=== PATIENT | female | born 1955 | race Caucasian/White ===

== ENCOUNTER 2017-07-19 19:50 | Observation (INO) | payer BC ==
[~2017-07-19] VITALS: Ht 167.6 cm; Wt 72.7 kg
[~2017-07-19 19:50] MED LIST: CLIN1CAP6 PO; LACT PO; LORT5TAB PO; MUPI2%T TOP; PROZ20CA11 PO; SULF1TAB47 PO; [UNRECOGNIZED DRUG - OTHER]
[2017-07-19 20:00] VITALS: BP 148/79; TEMP 98.1; O2SAT 99
[2017-07-19] MEDS ORDERED: ONDANSETRON HCL 4 MG/2 ML VIAL ONE (20:01)
--- NOTE | 2017-07-19 20:05 | PD ---
HPI Chief Complaint: Dizziness Time Seen by Provider: 20:01 Travel History International Travel<30 days: No Contact w/Intl Traveler<30days: No Traveled to known affect area: No History of Present Illness HPI The patient is a 61-year-old female that complains of vertigo beginning suddenly this afternoon. It briefly resolved but then came back. Anytime she moves her head there is vertigo, the room spins and causes her to get nauseated and vomit. She denies any fever or abdominal pain. She does have a slight, gradual headache which is bifrontal. She denies any tinnitus or ear pain. She denies any focal neurologic change, focal weakness or sensory loss. PFSH Past Medical History Autoimmune Disease: Yes (PSORIASIS) Cancer: Yes (SKIN CA) Cardiovascular Problems: No Chemotherapy: No Diabetes: No Endocrine: No Genitourinary: No Immune Disorder: Yes Musculoskeletal: No Neurologic: No Psychiatric: No Reproductive: No Respiratory: No Radiation Therapy: No Thyroid Disease: No Menopausal: Yes Past Surgical History Tonsillectomy: Yes (1972) Social History Alcohol Use: No Tobacco Use: No Substance Use: No Allergies-Medications (Allergen,Severity, Reaction): Coded Allergies: cephalexin (Verified Allergy, Intermediate, 07/19/17) morphine (Verified Adverse Reaction, Intermediate, ITCHING, 07/19/17) Reported Meds & Prescriptions Reported Meds & Active Scripts Active Reported [Imbral] Review of Systems Except as stated in HPI: all other systems reviewed are Neg Physical Exam Narrative GENERAL: The vital signs are normal. The patient holds her head perfectly still , turned to the right and moderate to severe distress with her vertigo. SKIN: Focused skin assessment warm/dry. HEAD: Atraumatic. Normocephalic. EYES: Pupils equal and round. No scleral icterus. No injection or drainage. ENT: No nasal bleeding or discharge. Mucous membranes pink and moist. The tympanic membranes are clear. NECK: Trachea midline. No JVD. There is no meningismus present. CARDIOVASCULAR: Regular rate and rhythm. No murmur appreciated. RESPIRATORY: No accessory muscle use. Clear to auscultation. Breath sounds equal bilaterally. GASTROINTESTINAL: Abdomen soft, non-tender, nondistended. Hepatic and splenic margins not palpable. MUSCULOSKELETAL: No obvious deformities. No clubbing. No cyanosis. No edema. NEUROLOGICAL: Awake and alert. No obvious cranial nerve deficits. Motor grossly within normal limits. Normal speech. PSYCHIATRIC: Appropriate mood and affect; insight and judgment normal. Data Data Last Documented VS Vital Signs Date Time Temp Pulse Resp B/P (MAP) Pulse Ox O2 Delivery O2 Flow Rate FiO2 07/19/17 20:35 63 20 96 Nasal Cannula 2.00 07/19/17 20:00 98.1 148/79 (102) Orders Orders Ondansetron Inj (Zofran Inj) (07/19/17 20:01) Ondansetron Inj (Zofran Inj) (07/19/17 20:15) Sodium Chlor 0.9% 1000 Ml Inj (Ns 1000 M (07/19/17 20:15) Electrocardiogram (07/19/17 20:07) Complete Blood Count With Diff (07/19/17 20:07) Comprehensive Metabolic Panel (07/19/17 20:07) Magnesium (Mg) (07/19/17 20:07) Urinalysis - C+S If Indicated (07/19/17 20:07) Ct Brain W/O Iv Contrast(Rout) (07/19/17 20:07) Ecg Monitoring (07/19/17 20:07) Iv Access Insert/Monitor (07/19/17 20:07) Oximetry (07/19/17 20:07) Sodium Chloride 0.9% Flush (Ns Flush) (07/19/17 20:15) Meclizine (Antivert) (07/19/17 22:00) Place In Observation (07/19/17 ) Vital Signs (Adult) Q4H (07/19/17 20:37) Activity Oob With Assistance (07/19/17 20:37) Diet Heart Healthy (07/20/17 Breakfast) Sodium Chloride 0.9% Flush (Ns Flush) (07/19/17 20:45) Sodium Chloride 0.9% Flush (Ns Flush) (07/19/17 21:00) Acetaminophen (Tylenol) (07/19/17 20:45) Ondansetron Inj (Zofran Inj) (07/19/17 20:45) Basic Metabolic Panel (Bmp) (07/20/17 06:00) Complete Blood Count With Diff (07/20/17 06:00) Pt Request For Service (07/19/17 20:37) Heparin Inj (Heparin Inj) (07/19/17 20:45) Naloxone Inj (Narcan Inj) (07/19/17 20:45) Docusate Sodium-Senna (Milli-Colace) (07/19/17 21:00) Magnesium Hydroxide Liq (Milk Of Magnesi (07/19/17 20:45) Sennosides (Senokot) (07/19/17 20:45) Bisacodyl Supp (Dulcolax Supp) (07/19/17 20:45) Lactulose Liq (Lactulose Liq) (07/19/17 20:45) Ketorolac Inj (Toradol Inj) (07/19/17 20:45) Prochlorperazine Inj (Compazine Inj) (07/19/17 21:00) Labs Laboratory Tests Test 07/19/17 20:46 MDM Medical Decision Making Medical Screen Exam Complete: Yes Emergency Medical Condition: Yes Medical Record Reviewed: Yes Interpretation(s) CT brain is normal. The CBC shows a white count of 11,200 but is otherwise unremarkable. The basic metabolic profile shows a calcium of 8.6 but is otherwise unremarkable. The magnesium level is normal. Differential Diagnosis Brain tumor, electrolyte disorder, hypo-/hyperglycemia, intracranial hemorrhage , labyrinthitis, benign positional vertigo, intractable vertigo Narrative Course The patient has intractable vertigo. It is now 8:43 PM and the patient still has nausea and still does not want to move her head. She has been given maximum dose of Zofran as well as Compazine IV. Physician Communication Physician Communication I discussed the patient with Dr. De La Vega. Diagnosis Primary Impression: Vertigo Admitting Information Admitting Physician Requests: Observation Jean-Paul Chatterjee MD July 19, 2017 20:05
[2017-07-19] MEDS ORDERED: ONDANSETRON HCL 4 MG/2 ML VIAL IV ONE (20:15)
[2017-07-19] MEDS ORDERED: SODIUM CHLORIDE 0.9% FLUSH 10 ML FLUSH IVF PRN (20:15)
[2017-07-19 20:22] VITALS: RESP 20; O2SAT 96
--- NOTE | 2017-07-19 20:36 | RADRPT ---
EXAM DATE: 07/19/2017 8:28 PM EDT AGE/SEX: 61 years / Female INDICATIONS: Dizziness. CLINICAL DATA: This is the patient's initial encounter. Patient reports that signs and symptoms have been present for 1 day and indicates a pain score of 0/10. MEDICAL/SURGICAL HISTORY: . Tonsillectomy. RADIATION DOSE: 49.85 CTDI (mGy) COMPARISON: No prior [facility] exams available for comparison. TECHNIQUE: CT of the head without contrast. Using automated exposure control and adjustment of the mA and/or kV according to patient size, radiation dose was kept as low as reasonably achievable to ob tain optimal diagnostic quality images. FINDINGS: Cerebrum: The ventricles are normal. No midline shift, mass lesion, hemorrhage or acute infarction. No extraaxial fluid collections are seen. Posterior Fossa: The cerebellum and brainstem demonstrate no acute abnormality. The 4th ventricle is midline. The cerebellopontine angle is within normal limits. Extracranial: The visualized sinuses are clear. Skull: The calvaria is intact. No skull fracture. CONCLUSION: No acute intracranial abnormality is identified. Electronically signed by: Abdoulaye Butler MD 07/19/2017 8:34 PM EDT
[2017-07-19] MEDS ORDERED: ONDANSETRON HCL 4 MG/2 ML VIAL IVP PRN (20:45)
[2017-07-19] MEDS ORDERED: SODIUM CHLORIDE 0.9% FLUSH 10 ML FLUSH IV FLUSH PRN (20:45)
[2017-07-19] MEDS ORDERED: NALOXONE HCL 0.4 MG/ML AMP IV PUSH PRN (20:45)
[2017-07-19] MEDS ORDERED: ACETAMINOPHEN 325 MG TAB PO PRN (20:45)
[2017-07-19] MEDS ORDERED: LACTULOSE SYRUP 20 GM/30 ML CUP PO PRN (20:45)
[2017-07-19] MEDS ORDERED: SENNOSIDES 8.6 MG TAB PO PRN (20:45)
[2017-07-19] MEDS ORDERED: MAGNESIUM HYDROXIDE SUSP 30 ML CUP PO PRN (20:45)
[2017-07-19] MEDS ORDERED: BISACODYL 10 MG SUPP RECTAL PRN (20:45)
[2017-07-19] MEDS ORDERED: KETOROLAC TROMETHAMINE 60 MG/2 ML (IM) VIAL IVP ONE (20:45)
[2017-07-19] MEDS: SODIUM CHLOR 0.9% 1000 ML INJ 1,000 ML IV SCH (20:46)
[2017-07-19 20:50] LABS: AUTOMATED NEUTROPHIL # 4.2 TH/MM3 (1.8-7.7); BASOPHIL # 0.1 TH/MM3 (0-0.2); BASOPHIL % 1.1 % (0.0-2.0); EOSINOPHIL # 0.1 TH/MM3 (0-0.4); EOSINOPHIL % 1.8 % (0.0-4.0); HEMATOCRIT 41.5 % (35.0-46.0); LYMPH % 26.8 % (9.0-44.0); LYMPHOCYTE # 1.8 TH/MM3 (1.0-4.8); MEAN CELL VOLUME 87.6 FL (80.0-100.0); MEAN CORPUSCULAR HEMOGLOBIN 29.5 PG (27.0-34.0); MEAN CORPUSCULAR HGB CONC 33.7 % (32.0-36.0); MEAN PLATELET VOLUME 8.2 FL (7.0-11.0); MONO % 8.2 % (0.0-8.0); MONOCYTE # 0.5 TH/MM3 (0-0.9); NEUT % 62.1 % (16.0-70.0); PLATELET COUNT 331 TH/MM3 (150-450); RED BLOOD COUNT 4.74 MIL/MM3 (4.00-5.30); RED CELL DISTRIBUTION WIDTH 12.2 % (11.6-17.2); WHITE BLOOD COUNT 6.7 TH/MM3 (4.0-11.0)
[2017-07-19 20:56] LABS: CHLORIDE 107 MEQ/L (98-107); SODIUM (NA) 141 MEQ/L (136-145)
[2017-07-19 20:59] LABS: CALCIUM 8.6 MG/DL (8.5-10.1)
[2017-07-19 21:00] LABS: ALBUMIN 3.7 GM/DL (3.4-5.0); BICARBONATE 26.1 MEQ/L (21.0-32.0); BLOOD UREA NITROGEN 21 MG/DL (7-18); GLUCOSE,RANDOM 127 MG/DL (74-106); MAGNESIUM 2.1 MG/DL (1.5-2.5)
[2017-07-19] MEDS: DOCUSATE SODIUM 50 MG/SENNA 8.6 MG TAB PO SCH (21:00)
[2017-07-19] MEDS: SODIUM CHLORIDE 0.9% FLUSH 10 ML FLUSH IV FLUSH SCH (21:00)
[2017-07-19] MEDS ORDERED: PROCHLORPERAZINE INJ 10 MG/2 ML VIAL IV PUSH ONE (21:00)
[2017-07-19 21:03] VITALS: BP 166/67; PULSE 64; RESP 20; O2SAT 100
[2017-07-19 21:03] LABS: ALT (GPT) 25 U/L (10-53); AST (GOT) 17 U/L (15-37); CREATININE 0.96 MG/DL (0.50-1.00); GLOMERULAR FILTRATION RATE 59 ML/MIN (>89)
[2017-07-19 21:04] LABS: TOTAL BILIRUBIN ADULT 0.4 MG/DL (0.2-1.0); TOTAL PROTEIN 6.8 GM/DL (6.4-8.2)
[2017-07-19 21:06] LABS: ALKALINE PHOSPHATASE 76 U/L (45-117)
[2017-07-19] MEDS: HEPARIN SODIUM - SQ 10,000 UNITS/ML VIAL SQ SCH (21:18)
[2017-07-19] MEDS: MECLIZINE HCL 25 MG TAB PO SCH (21:18)
[2017-07-19 21:30] VITALS: BP 153/73; PULSE 74; RESP 18; O2SAT 97
[2017-07-19 21:36] LABS: BILIRUBIN, URINE NEG (NEG); BLOOD, URINE TRACE (NEG); GLUCOSE,URINE NEG (NEG); KETONE, URINE NEG (NEG); NITRITE,URINE NEG (NEG); URINE COLOR YELLOW (YELLW/STRAW); URINE LEUKOCYTE ESTERASE NEG (NEG)
[2017-07-19 21:47] LABS: SQUAMOUS EPITHELIAL CELL URINE 0-5 /hpf (0-5)
[2017-07-19 22:03] VITALS: BP 140/91; PULSE 82; RESP 18; O2SAT 100
[2017-07-20] VITALS: BP 139/67; PULSE 77; RESP 20; TEMP 97.4; O2SAT 97
[2017-07-20] MEDS: MECLIZINE HCL 25 MG TAB PO SCH (05:48)
[2017-07-20 06:40] LABS: AUTOMATED NEUTROPHIL # 5.2 TH/MM3 (1.8-7.7); BASOPHIL % 0.3 % (0.0-2.0); EOSINOPHIL # 0.1 TH/MM3 (0-0.4); EOSINOPHIL % 1.6 % (0.0-4.0); HEMATOCRIT 40.8 % (35.0-46.0); HEMOGLOBIN 13.9 GM/DL (11.6-15.3); LYMPH % 27.4 % (9.0-44.0); LYMPHOCYTE # 2.2 TH/MM3 (1.0-4.8); MEAN CELL VOLUME 87.6 FL (80.0-100.0); MEAN CORPUSCULAR HEMOGLOBIN 29.7 PG (27.0-34.0); MEAN CORPUSCULAR HGB CONC 33.9 % (32.0-36.0); MEAN PLATELET VOLUME 8.5 FL (7.0-11.0); MONO % 7.6 % (0.0-8.0); MONOCYTE # 0.6 TH/MM3 (0-0.9); NEUT % 63.1 % (16.0-70.0); PLATELET COUNT 313 TH/MM3 (150-450); RED BLOOD COUNT 4.66 MIL/MM3 (4.00-5.30); RED CELL DISTRIBUTION WIDTH 12.6 % (11.6-17.2); WHITE BLOOD COUNT 8.1 TH/MM3 (4.0-11.0)
[2017-07-20 06:49] LABS: BICARBONATE 25.8 MEQ/L (21.0-32.0); CALCIUM 8.3 MG/DL (8.5-10.1)
[2017-07-20 06:53] LABS: CREATININE 0.76 MG/DL (0.50-1.00)
[2017-07-20 08:00] VITALS: BP_SYST 131; BP_SYST 142; BP_SYST 143; BP_DIAS 62; BP_DIAS 80; BP_DIAS 82; PULSE 70; RESP 16; TEMP 97.2; O2SAT 97
[2017-07-20] MEDS: DOCUSATE SODIUM 50 MG/SENNA 8.6 MG TAB PO SCH (08:49)
[2017-07-20] MEDS: HEPARIN SODIUM - SQ 10,000 UNITS/ML VIAL SQ SCH (08:50)
[2017-07-20] MEDS: SODIUM CHLORIDE 0.9% FLUSH 10 ML FLUSH IV FLUSH SCH (08:51)
--- NOTE | 2017-07-20 09:41 | HHI.HP ---
HPI Service [facility] Primary Care Physician Will Felix DO Admission Diagnosis Intractable vertigo Diagnoses: (1) Vertigo Chief Complaint: Dizziness Nausea and vomiting Travel History International Travel<30 Days: No Contact w/Intl Traveler <30 Da: No Traveled to Known Affected Are: No History of Present Illness Written by Gillian Mcrae, acting as scribe for Dr. Buck on 07/20/17 at 09:40. This is a pleasant 61-year-old female patient with a known medical history of psoriasis presented to the ED with complaints of dizziness. Patient states that yesterday afternoon while cleaning her home when she developed vertigo complaints of the room spinning and associated nausea and vomiting. Patient denies ever having this type of sensation before. Denies any lightheadedness, diplopia or blurry vision. Patient denies any recent illness including fever, chills, cough, shortness breath, headache, abdominal pain, diarrhea or dysuria. Patient states that her symptoms have resolved upon assessment this morning. PCP is Dr. Felix. Denies any new changes to her medicines. States she has been eating and drinking well at home. Review of Systems Constitutional: COMPLAINS OF: Dizziness, DENIES: Diaphoretic episodes, Fatigue , Fever, Chills Eyes: DENIES: Diplopia Respiratory: DENIES: Cough Cardiovascular: DENIES: Chest pain, Palpitations Gastrointestinal: COMPLAINS OF: Nausea, Vomiting, DENIES: Abdominal pain, Black stools, Bloody stools, Constipation, Diarrhea Musculoskeletal: DENIES: Joint pain Hematologic/lymphatic: DENIES: Bruising Immunologic/allergic: DENIES: Eczema Neurologic: DENIES: Abnormal gait Psychiatric: DENIES: Anxiety Except as stated in HPI: all other systems reviewed are Neg Past Family Social History Past Medical History Psoriasis History of skin cancer Past Surgical History Right shoulder repair Tonsillectomy Reported Medications Active Reported [Imbral] Allergies: Coded Allergies: cephalexin (Verified Allergy, Intermediate, 07/19/17) morphine (Verified Adverse Reaction, Intermediate, ITCHING, 07/19/17) Active Ordered Medications Current Medications Medications (Trade) Dose Ordered Sig/Domenica Route Start Time Stop Time Status Last Admin (NS Flush) 2 ml UNSCH PRN IVF 07/19/17 20:15 (Antivert) 25 mg Q8HR PO 07/19/17 22:00 07/20/17 05:48 (NS Flush) 2 ml UNSCH PRN IV FLUSH 07/19/17 20:45 (NS Flush) 2 ml BID IV FLUSH 07/19/17 21:00 07/20/17 08:51 (Tylenol) 650 mg Q4H PRN PO 07/19/17 20:45 (Zofran Inj) 4 mg Q6H PRN IVP 07/19/17 20:45 (Heparin Inj) 5,000 units Q12H SQ 07/19/17 21:00 07/20/17 08:50 (Narcan Inj) 0.4 mg UNSCH PRN IV PUSH 07/19/17 20:45 (Milli-Colace) 1 tab BID PO 07/19/17 21:00 07/20/17 08:49 (Milk Of Magnesia Liq) 30 ml Q12H PRN PO 07/19/17 20:45 (Senokot) 17.2 mg Q12H PRN PO 07/19/17 20:45 (Dulcolax Supp) 10 mg DAILY PRN RECTAL 07/19/17 20:45 (Lactulose Liq) 30 ml DAILY PRN PO 07/19/17 20:45 Family History Father has history of prostate cancer spread to the bone. Mother had a history of cardiovascular disease of an [place] at the age of 8484 years old. Social History Patient denies any tobacco or illicit drug use. Does admit to drinking 2 glasses of wine per night. Physical Exam Vital Signs Vital Signs Date Time Temp Pulse Resp B/P (MAP) Pulse Ox O2 Delivery O2 Flow Rate FiO2 07/20/17 00:00 97.4 77 20 139/67 (91) 97 07/19/17 22:32 07/19/17 22:03 82 18 140/91 (107) 100 Nasal Cannula 2.00 07/19/17 22:02 18 07/19/17 21:30 74 18 153/73 (99) 97 Room Air 07/19/17 21:03 64 20 166/67 (100) 100 Nasal Cannula 2.00 07/19/17 20:35 63 20 96 Nasal Cannula 2.00 07/19/17 20:22 20 96 Nasal Cannula 2.00 07/19/17 20:00 98.1 71 20 148/79 (102) 99 Physical Exam GENERAL: Well-developed, well-nourished patient in NAD. SKIN: Warm and dry. No rash. HEAD: Normocephalic. Atraumatic. EYES: Pupils equal and round. No scleral icterus. No injection or drainage. ENT: No nasal bleeding or discharge. Mucous membranes pink and moist. NECK: Supple. Trachea midline. CARDIOVASCULAR: Regular rate and rhythm. S1, S2 noted. No murmur appreciated. RESPIRATORY: No accessory muscle use. Clear to auscultation. Breath sounds equal bilaterally. GASTROINTESTINAL: Abdomen soft, non-tender, nondistended. Normoactive bowel sounds x4. MUSCULOSKELETAL: No obvious deformities. Extremities without clubbing, cyanosis , or edema. NEUROLOGICAL: Awake and alert. No obvious cranial nerve deficits. Motor grossly within normal limits. 5/5 muscle strength in bilateral upper and lower extremities. Normal speech. PSYCHIATRIC: Appropriate mood and affect; insight and judgment normal. Laboratory Laboratory Tests Test 07/19/17 20:46 07/19/17 21:36 07/20/17 06:20 White Blood Count 6.7 8.1 Red Blood Count 4.74 4.66 Hemoglobin 14.0 13.9 Hematocrit 41.5 40.8 Mean Corpuscular Volume 87.6 87.6 Mean Corpuscular Hemoglobin 29.5 29.7 Mean Corpuscular Hemoglobin Concent 33.7 33.9 Red Cell Distribution Width 12.2 12.6 Platelet Count 331 313 Mean Platelet Volume 8.2 8.5 Neutrophils (%) (Auto) 62.1 63.1 Lymphocytes (%) (Auto) 26.8 27.4 Monocytes (%) (Auto) 8.2 7.6 Eosinophils (%) (Auto) 1.8 1.6 Basophils (%) (Auto) 1.1 0.3 Neutrophils # (Auto) 4.2 5.2 Lymphocytes # (Auto) 1.8 2.2 Monocytes # (Auto) 0.5 0.6 Eosinophils # (Auto) 0.1 0.1 Basophils # (Auto) 0.1 0.0 CBC Comment DIFF FINAL DIFF FINAL Differential Comment Blood Urea Nitrogen 21 17 Creatinine 0.96 0.76 Random Glucose 127 90 Total Protein 6.8 Albumin 3.7 Calcium Level 8.6 8.3 Magnesium Level 2.1 Alkaline Phosphatase 76 Aspartate Amino Transf (AST/SGOT) 17 Alanine Aminotransferase (ALT/SGPT) 25 Total Bilirubin 0.4 Sodium Level 141 143 Potassium Level 3.8 3.6 Chloride Level 107 109 Carbon Dioxide Level 26.1 25.8 Anion Gap 8 8 Estimat Glomerular Filtration Rate 59 77 Urine Color YELLOW Urine Turbidity CLEAR Urine pH 6.0 Urine Specific [place] 1.010 Urine Protein NEG Urine Glucose (UA) NEG Urine Ketones NEG Urine Occult Blood TRACE Urine Nitrite NEG Urine Bilirubin NEG Urine Urobilinogen 0.2 Urine Leukocyte Esterase NEG Urine Squamous Epithelial Cells 0-5 Microscopic Urinalysis Comment CULT NOT INDICATED Result Diagram: 07/20/1761907/20/17619 Imaging Last Impressions Head CT 07/19/172006 Signed Impressions: CONCLUSION: No acute intracranial abnormality is identified. Septic Shock Reassessment Septic shock perfusion: reassessment completed Caprini VTE Risk Assessment Caprini VTE Risk Assessment: Mod/High Risk (score >= 2) Caprini Risk Assessment Model Point Value = 1 Point Value = 2 Point Value = 3 Point Value = 5 Age 41-60 Minor surgery BMI > 25 kg/m2 Swollen legs Varicose veins or History of unexplained or recurrent spontaneous Oral contraceptives or hormone replacement Sepsis (< 1 month) Serious lung disease, including pneumonia (< 1 month) Abnormal pulmonary function Acute myocardial infarction Congestive heart failure (< 1 month) History of inflammatory bowel disease Medical patient at bed rest Age 61-74 Arthroscopic surgery Major open surgery (> 45 min) Laparoscopic surgery (> 45 min) Malignancy Confined to bed (> 72 hours) Immobilizing plaster cast Central venous access Age >= 75 History of VTE Family history of VTE Factor V Leiden Prothrombin [id number] Lupus anticoagulant Anticardiolipin antibodies Elevated serum homocysteine Heparin-induced thrombocytopenia Other congenital or acquired thrombophilia Stroke (< 1 month) Elective arthroplasty Hip, pelvis, or leg fracture Acute spinal cord injury (< 1 month) Prophylaxis Regimen Total Risk Factor Score Risk Level Prophylaxis Regimen 0-1 Low Early ambulation 2 Moderate Order ONE of the following: *Sequential Compression Device (SCD) *Heparin 5000 units SQ BID 3-4 Higher Order ONE of the following medications: *Heparin 5000 units SQ TID *Enoxaparin/Lovenox 40 mg SQ daily (WT < 150 kg, CrCl > 30 mL/min) *Enoxaparin/Lovenox 30 mg SQ daily (WT < 150 kg, CrCl > 10-29 mL/min) *Enoxaparin/Lovenox 30 mg SQ BID (WT < 150 kg, CrCl > 30 mL/min) AND/OR *Sequential Compression Device (SCD) 5 or more Highest Order ONE of the following medications: *Heparin 5000 units SQ TID (Preferred with Epidurals) *Enoxaparin/Lovenox 40 mg SQ daily (WT < 150 kg, CrCl > 30 mL/min) *Enoxaparin/Lovenox 30 mg SQ daily (WT < 150 kg, CrCl > 10-29 mL/min) *Enoxaparin/Lovenox 30 mg SQ BID (WT < 150 kg, CrCl > 30 mL/min) AND *Sequential Compression Device (SCD) Assessment and Plan Problem List: (1) Vertigo ICD Code: R42 - Dizziness and giddiness Status: Acute Assessment and Plan This is a pleasant 61-year-old female patient with a known medical history of psoriasis presented to the ED with complaints of dizziness. Patient states that yesterday afternoon while cleaning her home when she developed vertigo complaints of the room spinning and associated nausea and vomiting. Vertigo with associated nausea and vomiting - Head CT was performed showing no acute abnormality. - Orthostatics ordered, will follow. - Patient is status post 1 L NS bolus in ED. - Vital signs have been stable. Symptoms have resolved with use of meclizine and Compazine and Zofran. - CBC and BMP essentially remarkable. UA negative. - EKG showing sinus rhythm with controlled heart rate, no ST changes. - Will encourage patient to get out of bed and ambulate, assess symptoms as well as encourage patient to eat and drink. - If tolerating symptoms improved patient will be DCd home to follow with PCP and meclizine rx. DVT prophylaxis: SCDs. Ambulation. Discharge patient to home. Condition on discharge: Improved. Regular Diet as tolerated. Ad Pepper activity. Rx written: See discharge orders. Follow-up with primary care physician. This note was transcribed by kita Mcrae. I, Dr. Lenin Buck personally performed the history, physical exam, and medical decision making; and confirmed the accuracy of the information in the transcribed note. Authenticated by Dr. Lenin Buck on 07/20/17 at 09:44. Code Status Full code Discussed Condition With Patient, , Son Gillian Mcrae Jul 20, 2017 09:41 Lenin Buck MD Jul 20, 2017 09:41
--- NOTE | 2017-07-20 09:48 | HHI.DCPOC ---
Discharge Care Plan Diagnosis: (1) Vertigo Goals to Promote Your Health * To prevent worsening of your condition and complications * To maintain your health at the optimal level Directions to Meet Your Goals Take your medications as prescribed Follow your dietary instruction Follow activity as directed Keep your appointments as scheduled Take your immunizations and boosters as scheduled If your symptoms worsen call your PCP, if no PCP go to Urgent Care Center or Emergency Room Smoking is Dangerous to Your Health. Avoid second hand smoke Call the 24-hour hour crisis hotline for domestic abuse at Gillian Mcrae Jul 20, 2017 09:48
[2017-07-20] MEDS ORDERED: MECL1TAB42 PO (09:49)
[2017-07-20] MEDS ORDERED: ZOFR4TAB3 SL (09:49)
--- NOTE | 2017-07-20 14:55 | EKG ---
Date Performed: 07/19/2017 Time Performed: 20:14:20 PTAGE: 61 years EKG: Sinus rhythm NORMAL ECG NO PREVIOUS TRACING DOCTOR: Naren Garcia Interpretating Date/Time 07/20/2017 14:52:36
== END 2017-07-20 11:45 | disposition home or self-care (01) ==
LOC: PHED 19:50 → PHEDA 20:51 → PH3B 22:25
PROVIDERS: ADMIT Hospitalist; ATTEND Hospitalist
DX: R42 Dizziness and giddiness (principal); R11.2 Nausea with vomiting, unspecified; L40.9 Psoriasis, unspecified; Z85.828 Personal history of other malignant neoplasm of skin; Z82.49 Family history of ischemic heart disease and other diseases of the circulatory system
CPT/HCPCS: 70450; 80048; 80053; 81001; 83735; 85025; 93005; 96361; 96372; 96374; 96375; 99285; G0378; J0780; J1644; J1885; J2405; J7030